=== PATIENT | male | born 1955 | race Caucasian/White ===

== ENCOUNTER 2024-12-03 11:32 | Emergency (ER) | payer MEDICARE, SELFPAY ==
--- NOTE | ~2024-12-03 | XR_ITS ---
XR knee LT min 4V Ordering provider: Nidhi Mello PA-C History: . LATERAL Left knee pain/NO TRAUMA . Comparison: None. FINDINGS: BONES: No acute fracture or dislocation. JOINT SPACES: Slight Narrowing of the medial and lateral compartments. SOFT TISSUES: Normal. IMPRESSION: No acute osseous abnormality left knee. Mild osteoarthritic changes. Reviewed, dictated and finalized at location A.
--- OUTSIDE RECORDS SUMMARY | 2024-12-03 11:34 | XMS_ITS | Continuity of Care Document ---
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 Location Location Details Encounter Type Encounter Number Reason For Visit Attending Provider ADM Date DC Date Status Disposition Source [facility] Outpatient Encounter [id number] 07/02 [facility]
--- OUTSIDE RECORDS SUMMARY | 2024-12-03 11:34 | XMS_ITS | Clinical Summary ---
Author Organization [employer] [facility] Address [address] [place] [address] Care Team Providers Care Program Schedule Clerk Name Role Phone Unavailable Primary Care Provider Unavailabl e Encounters Date Type Department Care Team Description 11/29/2024 External Device Data [facility] Provider, Abstract 11/28/2024 External Device Data [facility] Provider, Abstract 11/27/2024 External Device Data [facility] Provider, Abstract 10/23/2024 External Device Data [facility] Provider, Abstract 09/26/2024 External Device Data [facility] Provider, Abstract 09/26/2024 External Device Data [facility] Provider, Abstract 09/17/2024 External Device Data [facility] Provider, Abstract 09/15/2024 External Device Data [facility] Provider, Abstract 09/14/2024 External Device Data [facility] Provider, Abstract 09/12/2024 External Device Data [facility] Provider, Abstract from Last 3 Months Social History Tobacco Use Types Packs/Day Years Used Date Smoking Tobacco: Never Assessed Sex and Gender Information Value Date Recorded Sex Assigned at Not on file Legal Sex Male 8:46 AM CDT Gender Identity Not on file Sexual Orientation Not on file Plan of Treatment Health Maintenance Due Date Last Done Comments COLORECTAL SCREENING 1998 Colorectal Cancer Screening 1998 FIT-DNA Q 3 years 1998 FIT/FOBT Q 1 year 1998 Flex Sig/CT Colonography Q 5 years 1998 ZOSTER VACCINE (1 of 2) 2003 PNEUMOCOCCAL VACCINE 50+ YEARS (2 of 2 - PPSV23) 12/2312/23/2020 INFLUENZA VACCINE (#1) 2024 03/25/2020 DTAP/TDAP/TD VACCINES (2 - Td or Tdap) 10/09/2025 04 /07/2015 RSV VACCINE (60+ or ) (1 - 1-dose 75+ series) 01/16/2028 Insurance [employer]
[2024-12-03 11:44] VITALS: BP 142/80; PULSE 70; RESP 14; TEMP 36.9; O2SAT 100
--- NOTE | 2024-12-03 13:44 | ED.LOWEXIN ---
HPI - Extremity Injury (Lower) General Chief Complaint: Extremity Injury, Lower Stated Complaint: left knee pain Time Seen by Provider: 12/03/24 14:09 Focused HPI: 69-year-old male presents emergency department for left knee pain for the past 3 days. Patient states 4 days ago he was working on his car and then following day began developing pain in his left knee with some swelling that has progressively worsened. He states the pain is located to the anterior lateral aspect of the knee. He denies specific injury or trauma but is worried he may have tweaked to while working on the car. He denies pain to his calf for swelling to the remainder of the extremity, numbness or tingling. GENERAL: Well-appearing, well-nourished, and in no acute distress. HEAD: Normocephalic, atraumatic. CHEST: Clear to auscultation. ?No respiratory distress. EXT: Tenderness to the left proximal tibia on palpation with a small overlying knee effusion, full active and passive range of motion without difficulty. No warmth or erythema. No edema the remainder of extremity. Negative Homans. DP pulse 2 +, sensation intact. Extremities pink, warm and dry. HEART: Regular rate and rhythm.? NEURO: ?Alert and oriented x3. Patient screened in triage and initial orders placed.? ?Additional care and disposition to be based upon?diagnostic testing and treatment. Related Data Allergies Allergy/AdvReac Type Severity Reaction Status Date / Time No Known Allergies Allergy Verified 12/03/24 11:33 Course Vital Signs Vital signs: Vital Signs Temperature 98.4 F 12/03/24 11:44 Pulse Rate 70 12/03/24 11:44 Respiratory Rate 14 12/03/24 11:44 Blood Pressure 142/80 H 12/03/24 11:44 Pulse Oximetry 100 12/03/24 11:44 Temperature 97.8 F 12/03/24 14:00 Pulse Rate 58 L 12/03/24 14:00 Respiratory Rate 16 12/03/24 14:00 Blood Pressure 151/80 H 12/03/24 14:00 Pulse Oximetry 100 12/03/24 14:00 Discharge Plan Discharge Clinical Impression: Acute internal derangement of left knee Patient Disposition: Home Condition: Stable Instructions: Antibiotic Form, Crutch Instructions (ED), Knee Immobilizer (ED) Additional Instructions: Crutches for limited weight-bearing. Knee immobilizer for comfort and increased knee stability. Anti-inflammatories as directed. Have close follow-up with your primary care physician and with Orthopedics. If you have any worsening symptoms then please call or return to the emergency department. Patient Language: Afghan Prescriptions: New naproxen 500 mg tablet 500 mg PO BID PRN (Reason: pain) 7 Days Qty: 14 0RF Follow-up/Referrals: Magdalena Nettles PA-C [Physician General Road Production Manager] - Casper Nieves MD [Physician] -
[2024-12-03 14:00] VITALS: BP 151/80; PULSE 58; RESP 16; TEMP 36.6; O2SAT 100
--- OUTSIDE RECORDS SUMMARY | 2024-12-03 14:26 | XMS_ITS | Clinical Summary ---
Author Organization [employer] [employer] [facility] Address [address] [place] [address] Care Team Providers Care Senior Consumer Insights Consultant Name Role Phone Unavailable Primary Care Provider [...]
--- NOTE | 2024-12-03 14:48 | ED_ITS ---
HPI - General Adult General Chief complaint: Extremity Injury, Lower Stated complaint: left knee pain Time Seen by Provider: 12/03/24 14:09 History of Present Illness HPI narrative: 69-year-old male present to the emergency department for evaluation for left knee pain. Patient reports he had been working under the car on Tuesday and began having worsening left knee pain into the evening and into Tuesday. Patient denies any specific falls or incident of injury. Patient reports he is having left lateral knee pain that does radiate down the leg. Patient reports pain is worsened with bending of the knee and pain is improved when he is walking with a straight left leg. Related Data Allergies Allergy/AdvReac Type Severity Reaction Status Date / Time No Known Allergies Allergy Verified 12/03/24 11:33 Review of Systems Review of Systems: All systems reviewed & are unremarkable except as noted in HPI and below Exam Narrative: APPEARANCE: Well appearing, no pain, no distress, well-nourished. HEAD: normocephalic, atraumatic. EYES: PERRLA/EOMI, conjunctivae clear. NOSE: Normal no drainage EARS:TMS clear with good light reflex. THROAT: Pharynx clear, no exudate. NECK: Supple. No adenopathy, no masses. RESPIRATORY: Airway patent, respirations nonlabored. Clear to auscultation bilaterally, no rales, rhonchi, wheezing. CARDIOVASCULAR: Regular rate and rhythm without murmurs rubs or gallops. ABDOMINAL: Soft, nontender, nondistended, normal bowel sounds MUSCULOSKELETAL: No significant knee effusion, no erythema, mild left lateral knee tenderness to palpation NEURO: Alert. Cranial nerves II through XII intact. Good gait. Good coordination SKIN: Warm, dry. Normal Color Course Vital Signs Vital signs: Vital Signs Temperature 98.4 F 12/03/24 11:44 Pulse Rate 70 12/03/24 11:44 Respiratory Rate 14 12/03/24 11:44 Blood Pressure 142/80 H 12/03/24 11:44 Pulse Oximetry 100 12/03/24 11:44 Temperature 97.8 F 12/03/24 14:00 Pulse Rate 58 L 12/03/24 14:00 Respiratory Rate 16 12/03/24 14:00 Blood Pressure 151/80 H 12/03/24 14:00 Pulse Oximetry 100 12/03/24 14:00 Medical Decision Making MDM Narrative Medical decision making narrative: 69-year-old male presenting to the emergency department for evaluation for left knee pain. X-ray was negative for acute fracture dislocation. Patient does have some left lateral knee tenderness to palpation without significant ecchymosis, effusion, or erythema. Low concern for septic arthritis. Patient will be provided a knee immobilizer for comfort and crutches for limited weight- bearing. Patient was encouraged close follow-up with Orthopedics. All questions concerns were addressed patient was well-appearing at time of discharge. Differential Diagnosis Differential Diagnosis: Internal derangement of left knee, osteoarthritis, septic arthritis, knee contusion, knee fracture Vital Signs Vital Signs: Vital Signs Temperature 98.4 F 12/03/24 11:44 Pulse Rate 70 12/03/24 11:44 Respiratory Rate 14 12/03/24 11:44 Blood Pressure 142/80 H 12/03/24 11:44 Pulse Oximetry 100 12/03/24 11:44 Temperature 97.8 F 12/03/24 14:00 Pulse Rate 58 L 12/03/24 14:00 Respiratory Rate 16 12/03/24 14:00 Blood Pressure 151/80 H 12/03/24 14:00 Pulse Oximetry 100 12/03/24 14:00 Imaging Data Radiologist's impression: Impressions Knee X-Ray 12/03/24 14:07 IMPRESSION: No acute osseous abnormality left knee. Mild osteoarthritic changes. Discharge Plan Discharge Clinical Impression: Acute internal derangement of left knee Patient Disposition: Home Condition: Stable Instructions: Antibiotic Form, Crutch Instructions (ED), Knee Immobilizer (ED) Additional Instructions: Crutches for limited weight-bearing. Knee immobilizer for comfort and increased knee stability. Anti-inflammatories as directed. Have close follow-up with your primary care physician and with Orthopedics. If you have any worsening symptoms then please call or return to the emergency department. Patient Language: Romanian Prescriptions: New naproxen 500 mg tablet 500 mg PO BID PRN (Reason: pain) 7 Days Qty: 14 0RF Follow-up/Referrals: Magdalena Nettles PA-C [Physician Ship Steward] - Casper Nieves MD [Physician] -
== END 2024-12-03 15:35 | disposition home or self-care (01) ==
PROVIDERS: Emergency Provider Emergency Medicine
DX: M23.92 Unspecified internal derangement of left knee (principal)
CPT/HCPCS: 73564; 99283; 99284